=== PATIENT | female | born 1965 | race Caucasian/White ===

== ENCOUNTER 2023-09-28 19:02 | Observation (INO) | payer BC, SELFPAY ==
[2023-09-28 19:36] VITALS: PULSE 87; RESP 18; TEMP 36.9; O2SAT 93; BMI 36.4
[2023-09-28 20:41] LABS: Add Urine Microscopic? YES; Bilirubin Urine Neg (Negative); Blood Urine 2+ (Negative); Glucose Urine UA Norm (Normal); Ketones Urine Negative (Negative); Leukocyte Esterase Urine 2+ (Negative); Nitrate Urine Negative (Negative); Protein Urine Neg (Negative); Urine Appearance SL Hazy (CLEAR); Urine Color Yellow (Yellow); Urobilinogen Urine Norm (Negative); pH Urine 6 (5-7)
[2023-09-28 20:42] LABS: Bacteria Urine TRACE /hpf; Squamous Epithelial Cell Urine 15-25 /hpf (0-5); WBC Urine 15-25 /hpf (0-5)
[2023-09-28 21:09] VITALS: BP 172/59; PULSE 72; O2SAT 94
[2023-09-28 21:12] LABS: Basophils % 0.4 %; Eosinophils # 0.2 10^3/uL (0.0-0.8); Eosinophils % 2.3 %; Hematocrit 46.5 % (36-47); Lymphocytes # 1.6 10^3/uL (0.8-4.8); Lymphocytes % 15.6 %; Mean Corpuscular Hemoglobin 29.3 pg (27-33); Mean Corpuscular Volume 94.5 fl (85-98); Mean Platelet Volume 13.2 fL (7.4-10.4); Monocytes # 0.7 10^3/uL (0.2-0.9); Monocytes % 6.9 %; Neutrophils # 7.42 10^3/uL (1.8-7.7); Neutrophils % 74.5 %; Nucleated Red Blood Cells % 0 %; Platelet Count 195 10^3/cmm (157-399); Red Blood Count 4.92 10^6/uL (3.85-5.65); Red Cell Distribution Width 13.6 % (12.1-15.1); White Blood Count 9.96 10^3/uL (3.29-11.43)
--- NOTE | 2023-09-28 21:13 | CTR_ITS ---
PROCEDURE INFORMATION: Exam: CT Abdomen And Pelvis With Contrast Exam date and time: 09/28/2023 9:36 PM Age: 58 years old Clinical indication: Abdominal pain; Localized; Right upper quadrant (ruq); Patient HX: C/O ruq pain; Additional info: Ruq abd pain TECHNIQUE: Imaging protocol: Computed tomography of the abdomen and pelvis with contrast. Radiation optimization: All CT scans at this facility use at least one of these dose optimization techniques: automated exposure control; mA and/or kV adjustment per patient size (includes targeted exams where dose is matched to clinical indication); or iterative reconstruction. Contrast material: OMNI 350; Contrast volume: 100 ml; Contrast route: INTRAVENOUS (IV); COMPARISON: No relevant prior studies available. RADIATION DOSE METRICS: Total DLP (mGy-cm): 1000.38 FINDINGS: Lungs: Subsegmental bibasilar atelectasis. The visualized lung bases are otherwise grossly clear. Diaphragm: No evidence of diaphragmatic defect. Liver: No focal hepatic lesion. Gallbladder and bile ducts: There is cholelithiasis with minimal pericholecystic haziness. No inflammatory changes to suggest acute cholecystitis. No intrahepatic or extrahepatic biliary dilatation. Pancreas: Unremarkable. Spleen: Unremarkable. Adrenal glands: Unremarkable. Kidneys and ureters: There are simple appearing renal cysts for which dedicated imaging follow-up is not required. Otherwise no evidence of renal parenchymal abnormality. No hydronephrosis or ureteral stone. Stomach and bowel: No evidence of bowel obstruction or perienteric inflammatory changes. 5 cm fat containing periumbilical hernia. Incidental intramural lipoma noted in the duodenal bulb. Appendix: Normal appendix. Intraperitoneal space: No evidence of free air or fluid collection. Vasculature: No aneurysmal dilatation or dissection of the abdominal aorta. The celiac trunk, SMA and LUX are grossly patent. No evidence of IVC thrombus. The portal vein, SMV and splenic veins are grossly patent. Lymph nodes: No adenopathy. Urinary bladder: Grossly unremarkable. Reproductive: Grossly unremarkable. Bones/joints: No evidence of acute fracture or aggressive osseous lesion. Severe osteoarthritis of the left hip. Prominent L1-L2 anterior osteophytosis. Chronic L5 pars defects noted. Soft tissues: No evidence of fluid collection or hematoma in the superficial soft tissues. CT/CT abdomen pelvis w con* [id number] IMPRESSION: 1. No evidence of acute abnormality in the abdomen or pelvis. 2. Cholelithiasis with minimal pericholecystic haziness raising the question of symptomatic cholelithiasis. No inflammatory changes to suggest acute cholecystitis. If there is ongoing clinical concern, consider correlation with biliary labs and right upper quadrant ultrasound.
[2023-09-28 21:32] LABS: Alanine Aminotransferase 22 U/L (0-33); Albumin Level 3.8 g/dL (3.5-5.2); Alkaline Phosphatase 127 U/L (35-105); Anion Gap 10.1 (5-19); Aspartate Amino Transferase 17 U/L (0-32); Blood Urea Nitrogen 17 mg/dL (8-23); Calcium 9.6 mg/dL (8.5-10.5); Carbon Dioxide 31 mmol/L (22-29); Chloride 107 mmol/L (98-107); Globulin 3.4 g/dL (1.3-4.6); Glomerular Filtration Rate 73.2 mL/min (90-130); Glucose 116 mg/dL (65-115); Lipase 26 U/L (13-60); Osmolality Calculated 301 mOsm/kg (285-295); Potassium 4.1 mmol/L (3.5-5.1); Sodium 144 mmol/L (136-145); Total Bilirubin 0.2 mg/dL (0.15-1.2); Total Protein 7.2 g/dL (6.6-8.7)
[2023-09-28] MEDS: iohexol 350 mg/mL 500 mL Btl (per mL) IV (21:38)
--- NOTE | 2023-09-28 21:41 | W.ED.ABDPA2 ---
HPI - Abdominal Pain General: Chief Complaint: Abdominal Pain Stated Complaint: left side and back pain Time Seen by Provider: 09/28/23 21:12 History of Present Illness: 58-year-old female presents to the emergency department with complaints of right upper quadrant abdominal pain after eating this evening. She states she has had similar pain intermittently since September 27, 2023. She states that now the pain is a 7 out of 10 worse on inspiration and worse if she touches her right upper quadrant. She states the pain is worse if she bends over. She has had associated nausea without vomiting. She denies hematic emesis or hematochezia. She denies fevers chills or night sweats. Associated Symptoms: Reports nausea Review of Systems General: Reports: 10 or more systems reviewed and unremarkable except in HPI and below GI: Reports: abdominal pain and nausea Physical Exam Narrative: EXAM NARRATIVE: Constitutional: the patient appears well nourished and of normal development. Vital signs as documented. No acute distress at present. Alert and oriented-to person, place, time and situation. Head, eyes, ears, nose, mouth, throat: Normocephalic, atraumatic. Pupils-equal, round, reactive to light. No scleral icterus. Normal-appearing external ears. Normal appearing nasal turbinates, no drainage. No obvious oral lesions, posterior oropharynx without erythema or exudates. Neck: Supple, trachea is midline, no lymphadenopathy, no jugular venous distension, thyromegaly, or carotid bruits. Carotid upstrokes are brisk bilaterally. Lungs: clear to auscultation to all lung [place]. Symmetrical rise and fall of chest, no obvious signs of increased work of breathing at present. Cardiac: Regular rate and rhythm, positive S1, S2. No murmurs, rubs or gallops that I can appreciate Abdomen: Soft, right upper quadrant tender to palpation, positive Donohue sign, normal active bowel sounds to all quadrants. No palpable masses, no organomegaly and abdominal bruits. Extremities: 2+ pulses in the upper extremities that are equal bilaterally, 2+ pulses in the lower extremities that are equal bilaterally. Non-edematous. Moves all extremities well, sensation to all extremities are noted. Skin: Warm, dry, intact. Course Vital Signs: Vital signs: Vital Signs Temperature 98.4 F 09/28/23 19:36 Pulse Rate 72 09/28/23 21:09 Respiratory Rate 18 02/02/24 19:36 Blood Pressure 172/59 09/28/23 21:09 Pulse Oximetry 94 09/28/23 21:09 Oxygen Delivery Me thod Room Air 09/28/23 21:09 MDM - Abdominal Pain Medical Decision Making Physical exam completed and documented, I will obtain laboratory evaluation to include a CBC, CMP, lipase, urinalysis, and a CT scan of the patient's abdomen pelvis to evaluate for possible differential diagnosis of bowel obstruction, incarcerated hernia, abdominal wall strain, abdominal wall hematoma, constipation. I will provide the patient IV access and IV fluid as well as an ultrasound of the right upper quadrant given her positive physical exam findings and to rule out cholelithiasis, cholecystitis. I will provide nausea and pain medication. Medical Records I reviewed the patient's medical records. Lab Data I reviewed the patient's lab results. 09/28/23 20:45 09/28/23 20:45 Labs/Radiology: Radiology Impressions Abdomen/Pelvis CT 09/28/23 21:13 IMPRESSION: 1. No evidence of acute abnormality in the abdomen or pelvis. 2. Cholelithiasis with minimal pericholecystic haziness raising the question of symptomatic cholelithiasis. No inflammatory changes to suggest acute cholecystitis. If there is ongoing clinical concern, consider correlation with biliary labs and right upper quadrant ultrasound. Gallbladder Ultrasound 09/28/23 21:58 IMPRESSION: 1. Cholelithiasis with mild gallbladder wall thickening compatible with symptomatic cholelithiasis versus early acute cholecystitis in the proper clinical setting. Laboratory Results WBC 9.96 10^3/uL (3.29-11.43) 09/28/23 20:45 RBC 4.92 10^6/uL (3.85-5.65) 09/28/23 20:45 Hgb 14.40 g/dL (11.27-16.99) 09/28/23 20:45 Hct 46.5 % (36-47) 09/28/23 20:45 MCV 94.5 fl (85-98) 09/28/23 20:45 MCH 29.3 pg (27-33) 09/28/23 20:45 MCHC 31.0 g/dL (30-55) 09/28/23 20:45 RDW 13.6 % (12.1-15.1) 09/28/23 20:45 Plt Count 195 10^3/cmm (157-399) 09/28/23 20:45 MPV 13.2 fL (7.4-10.4) H 09/28/23 20:45 Neut % (Auto) 74.5 % 09/28/23 20:45 Lymph % (Auto) 15.6 % 09/28/23 20:45 [place] % (Auto) 6.9 % 09/28/23 20:45 Eos % (Auto) 2.3 % 09/28/23 20:45 Baso % (Auto) 0.4 % 09/28/23 20:45 Neut # (Auto) 7.42 10^3/uL (1.8-7.7) 09/28/23 20:45 Lymph # (Auto) 1.6 10^3/uL (0.8-4.8) 09/28/23 20:45 [place] # (Auto) 0.7 10^3/uL (0.2-0.9) 09/28/23 20:45 Eos # (Auto) 0.2 10^3/uL (0.0-0.8) 09/28/23 20:45 Baso # (Auto) 0.0 10^3/uL (0.0-0.1) 09/28/23 20:45 Nucleated RBC % (auto) 0 % 09/28/23 20:45 Nucleated RBCs # 0.0 /100WBC 09/28/23 20:45 Sodium 144 mmol/L (136-145) 09/28/23 20:45 Potassium 4.1 mmol/L (3.5-5.1) 09/28/23 20:45 Chloride 107 mmol/L (98-107) 09/28/23 20:45 Carbon Dioxide 31 mmol/L (22-29) H 09/28/23 20:45 Anion Gap 10.1 (5-19) 09/28/23 20:45 BUN 17 mg/dL (8-23) 09/28/23 20:45 Creatinine 0.8 mg/dL (0.5-0.9) 09/28/23 20:45 GFR Calculation 73.2 mL/min (90-130) L 09/28/23 20:45 Glucose 116 mg/dL (65-115) H 09/28/23 20:45 Calculated Osmolality 301 mOsm/kg (285-295) H 09/28/23 20:45 Calcium 9.6 mg/dL (8.5-10.5) 09/28/23 20:45 Total Bilirubin 0.2 mg/dL (0.15-1.2) 09/28/23 20:45 AST 17 U/L (0-32) 09/28/23 20:45 ALT 22 U/L (0-33) 09/28/23 20:45 Alkaline Phosphatase 127 U/L (35-105) H 09/28/23 20:45 Total Protein 7.2 g/dL (6.6-8.7) 09/28/23 20:45 Albumin 3.8 g/dL (3.5-5.2) 09/28/23 20:45 Globulin 3.4 g/dL (1.3-4.6) 09/28/23 20:45 Lipase 26 U/L (13-60) 09/28/23 20:45 Urine Color Yellow (Yellow) 09/28/23 19:45 Urine Appearance Sl hazy (CLEAR) A 09/28/23 19:45 Urine pH 6 (5-7) 09/28/23 19:45 Ur Specific [place] 1.020 (1.005-1.030) 09/28/23 19:45 Urine Protein Neg (Negative) 09/28/23 19:45 Urine Glucose (UA) Norm (Normal) 09/28/23 19:45 Urine Ketones Negative (Negative) 09/28/23 19:45 Urine Blood 2+ (Negative) H 09/28/23 19:45 Urine Nitrate Negative (Negative) 09/28/23 19:45 Urine Bilirubin Neg (Negative) 09/28/23 19:45 Urine Urobilinogen Norm mg/dL (Negative) 09/28/23 19:45 Ur Leukocyte Esterase 2+ (Negative) H 09/28/23 19:45 Urine RBC 5-10 /hpf (0-2) H 09/28/23 19:45 Urine WBC 15-25 /hpf (0-5) H 09/28/23 19:45 Ur Squamous Epith Cells 15-25 /hpf (0-5) H 09/28/23 19:45 Amorphous Sediment Not Reportable 09/28/23 19:45 Urine Bacteria Trace /hpf (NONE) 09/28/23 19:45 All radiology interpretation(s) finalized by discharge Discharge Plan Discharge Patient Disposition: Admitted As Inpatient Clinical Impression: Cholecystitis with cholelithiasis Condition: Stable Coding Level of Care Code ED Computer Systems Information Director for Shira Carrasquillo
--- NOTE | 2023-09-28 21:58 | USR_ITS ---
PROCEDURE INFORMATION: Exam: US Abdomen, Limited; Right Upper Quadrant Exam date and time: 09/28/2023 10:42 PM Age: 58 years old Clinical indication: Abdominal pain; Acute; Additional info: Ruq abd pain TECHNIQUE: Imaging protocol: Real time ultrasound of the abdomen with image documentation. Limited exam focused on the right upper quadrant. COMPARISON: CT abdomen pelvis w con* [id number] 09/28/2023 9:36 PM FINDINGS: Liver: Visualized hepatic parenchyma is echogenic. The liver contour is grossly smooth. Gallbladder: There is cholelithiasis. Mild gallbladder wall thickening to 4-5 mm. Biliary ducts: The CBD is nondilated, measuring 6 mm. No sonographic evidence of intraductal stone. Pancreas: The pancreas is mostly obscured bowel gas. Visualized portions are grossly unremarkable. Right kidney: The right kidney is normal in echotexture and measures 12.2 cm in length. No evidence of hydronephrosis. US/US gall bladder [id number] IMPRESSION: 1. Cholelithiasis with mild gallbladder wall thickening compatible with symptomatic cholelithiasis versus early acute cholecystitis in the proper clinical setting.
[2023-09-28] MEDS: ondansetron 2 mg/ML SDV 2 mL 4 MG IVP (22:20)
[2023-09-28] MEDS: ketorolac 30 mg/mL INJ IVP (22:20)
[2023-09-28 23:45] VITALS: PULSE 74; O2SAT 90
[2023-09-28] MEDS: piperacillin-tazobactam 3.375 GM in sodium chloride 0.9% (plus) 50 ML IV (23:59)
[2023-09-29] MEDS: lactated ringers 1,000 ML 100 ML IV ×2 (00:41→08:14)
--- NOTE | 2023-09-29 00:45 | PC.NURSE ---
Morphine returned to Pyxis, as patient stated that her pain was a 0/10 and she did not want it. Return witnessed by DELIA Leslie at this time.
[2023-09-29 02:17] VITALS: BP 152/81; PULSE 71; RESP 16; O2SAT 92
--- NOTE | 2023-09-29 02:20 | PC.NURSE ---
Report called to DELIA Leon on MS. All questions and concerns addressed at time of report.
[2023-09-29 02:45] VITALS: BP 150/83; PULSE 79; RESP 18; TEMP 36.4; O2SAT 90
[2023-09-29 03:09] VITALS: BMI 40.4
[2023-09-29] MEDS: ketorolac 30 mg/mL INJ 15 MG IVP ×2 (03:20→10:16)
[2023-09-29 04:00] VITALS: BP 126/70; PULSE 64; RESP 17; TEMP 36.6; O2SAT 92
[2023-09-29 05:52] LABS: Basophils % 0.4 %; Eosinophils # 0.2 10^3/uL (0.0-0.8); Eosinophils % 2.4 %; Hematocrit 45.7 % (36-47); Lymphocytes # 1.6 10^3/uL (0.8-4.8); Lymphocytes % 19.1 %; Mean Corpuscular HGB Conc 30.6 g/dL (30-55); Mean Corpuscular Hemoglobin 29.4 pg (27-33); Mean Platelet Volume 13.6 fL (7.4-10.4); Monocytes # 0.6 10^3/uL (0.2-0.9); Monocytes % 7.7 %; Neutrophils # 5.75 10^3/uL (1.8-7.7); Nucleated Red Blood Cells % 0 %; Platelet Count 180 10^3/cmm (157-399); Red Blood Count 4.76 10^6/uL (3.85-5.65); Red Cell Distribution Width 13.8 % (12.1-15.1); White Blood Count 8.21 10^3/uL (3.29-11.43)
[2023-09-29 06:04] LABS: Partial Thromboplastin Time 26.3 SECONDS (23.9-36.7)
[2023-09-29 06:11] LABS: Alanine Aminotransferase 39 U/L (0-33); Albumin Level 3.4 g/dL (3.5-5.2); Alkaline Phosphatase 123 U/L (35-105); Anion Gap 9.3 (5-19); Aspartate Amino Transferase 34 U/L (0-32); Blood Urea Nitrogen 20 mg/dL (8-23); Calcium 8.9 mg/dL (8.5-10.5); Carbon Dioxide 30 mmol/L (22-29); Chloride 109 mmol/L (98-107); Globulin 3.4 g/dL (1.3-4.6); Glomerular Filtration Rate 85.4 mL/min (90-130); Glucose 105 mg/dL (65-115); Osmolality Calculated 301 mOsm/kg (285-295); Potassium 4.3 mmol/L (3.5-5.1); Sodium 144 mmol/L (136-145); Total Bilirubin 0.2 mg/dL (0.15-1.2); Total Protein 6.8 g/dL (6.6-8.7)
[2023-09-29] MEDS: piperacillin-tazobactam 3.375 GM in sodium chloride 0.9% (plus) 50 ML IV (08:08)
[2023-09-29 08:12] VITALS: BP 145/81; PULSE 64; RESP 16; TEMP 36.6; O2SAT 93
--- NOTE | 2023-09-29 08:49 | P.DS_ITS ---
Discharge Providers Date of Admission: 09/29/23 00:00 Date of Discharge: September 29, 2023 Attending Provider at Admission: Avery Peterson MD Attending Provider at Discharge: Avery Peterson MD Reason for Visit Reason for Visit: left side and back pain Hospital Course Hospital Course This is a 58-year-old female who presented yesterday to the emergency department complaining of right upper quadrant pain. Laboratory workup was normal CT scan of the abdomen and ultrasound of the bladder were done which show evidence of minimal amount of gallbladder wall thickening and pericholecystic fluid that was suspicious for possible symptomatic cholelithiasis versus acute cholecystitis. We decided to admit the patient for observation overnight and to determine if laparoscopic ostectomy was acutely indicated. On evaluation this morning patient explains that the pain has resolved completely. Patient states that she has not had this pain in the past and it came yesterday after she ate prime rib. She denies any abdominal pain at the moment, no fever no chills, no nausea or vomiting. On examination there is no tenderness to the abdomen or the right upper quadrant. I have discussed with the patient I have explained that after further review of imaging laboratory workup and clinical presentation I think probably she had an episode of biliary colic rather than acute cholecystitis. I have informed the patient that I will still like to proceed with a laparoscopic cholecystectomy but this can be done in an elective setting as there is no acute indication. I have explained to the patient that in the meantime until she gets her surgery I would like her to stay in very lean low-fat diet to prevent further episodes of biliary colic and I will also like her to attend on some weight loss to improve her outcomes. I have given the patient warning signs and in case of recurrent pain or worsening symptomatology I have explained that we will have to proceed with a laparoscopic cholecystectomy in the acute setting. Patient shows understanding, is agreeable with the plan and will follow-up with me in 1 week to plan for surgery. Physical Exam Narrative: General : Patient is well developed , no acute distress, oriented x3 Head : Normal cephalic, a-traumatic. Nose : Mucous membranes are without erythema. Lungs : Equal chest rise bilaterally, no use of accessory muscles, trachea is midline. CV : Rate and rhythm are normal. Abdomen : Soft, ND, NT, no g/r/m, no Donohue sign or right upper quadrant tenderness to palpation, there is an umbilical hernia. Extremities : No edema. Upper extremities are normal bilaterally. Back : non-tender to palpation, no CVA tenderness. Discharge Data Studies Completed and Pending Completed Studies During Hospitalization Category Date Time Status CT abdomen pelvis w con* [id number] Stat Cat Scan 09/28/23 21:13 Completed US gall bladder [id number] Stat Ultrasound 09/28/23 21:58 Completed Radiology Impressions Abdomen/Pelvis CT 09/28/23 21:13 IMPRESSION: 1. No evidence of acute abnormality in the abdomen or pelvis. 2. Cholelithiasis with minimal pericholecystic haziness raising the question of symptomatic cholelithiasis. No inflammatory changes to suggest acute cholecystitis. If there is ongoing clinical concern, consider correlation with biliary labs and right upper quadrant ultrasound. Gallbladder Ultrasound 09/28/23 21:58 IMPRESSION: 1. Cholelithiasis with mild gallbladder wall thickening compatible with symptomatic cholelithiasis versus early acute cholecystitis in the proper clinical setting. Laboratory Results WBC 8.21 10^3/uL (3.29-11.43) 09/29/23 04:57 RBC 4.76 10^6/uL (3.85-5.65) 09/29/23 04:57 Hgb 14.00 g/dL (11.27-16.99) 09/29/23 04:57 Hct 45.7 % (36-47) 09/29/23 04:57 MCV 96.0 fl (85-98) 09/29/23 04:57 MCH 29.4 pg (27-33) 09/29/23 04:57 MCHC 30.6 g/dL (30-55) 09/29/23 04:57 RDW 13.8 % (12.1-15.1) 09/29/23 04:57 Plt Count 180 10^3/cmm (157-399) 09/29/23 04:57 MPV 13.6 fL (7.4-10.4) H 09/29/23 04:57 Neut % (Auto) 70.0 % 09/29/23 04:57 Lymph % (Auto) 19.1 % 09/29/23 04:57 [place] % (Auto) 7.7 % 09/29/23 04:57 Eos % (Auto) 2.4 % 09/29/23 04:57 Baso % (Auto) 0.4 % 09/29/23 04:57 Neut # (Auto) 5.75 10^3/uL (1.8-7.7) 09/29/23 04:57 Lymph # (Auto) 1.6 10^3/uL (0.8-4.8) 09/29/23 04:57 [place] # (Auto) 0.6 10^3/uL (0.2-0.9) 09/29/23 04:57 Eos # (Auto) 0.2 10^3/uL (0.0-0.8) 09/29/23 04:57 Baso # (Auto) 0.0 10^3/uL (0.0-0.1) 09/29/23 04:57 Nucleated RBC % (auto) 0 % 09/29/23 04:57 Nucleated RBCs # 0.0 /100WBC 09/29/23 04:57 APTT 26.3 SECONDS (23.9-36.7) 09/29/23 04:57 Sodium 144 mmol/L (136-145) 09/29/23 04:57 Potassium 4.3 mmol/L (3.5-5.1) 09/29/23 04:57 Chloride 109 mmol/L (98-107) H 09/29/23 04:57 Carbon Dioxide 30 mmol/L (22-29) H 09/29/23 04:57 Anion Gap 9.3 (5-19) 09/29/23 04:57 BUN 20 mg/dL (8-23) 09/29/23 04:57 Creatinine 0.7 mg/dL (0.5-0.9) 09/29/23 04:57 GFR Calculation 85.4 mL/min (90-130) L 09/29/23 04:57 Glucose 105 mg/dL (65-115) 09/29/23 04:57 Calculated Osmolality 301 mOsm/kg (285-295) H 09/29/23 04:57 Calcium 8.9 mg/dL (8.5-10.5) 09/29/23 04:57 Total Bilirubin 0.2 mg/dL (0.15-1.2) 09/29/23 04:57 AST 34 U/L (0-32) H 09/29/23 04:57 ALT 39 U/L (0-33) H 09/29/23 04:57 Alkaline Phosphatase 123 U/L (35-105) H 09/29/23 04:57 Total Protein 6.8 g/dL (6.6-8.7) 09/29/23 04:57 Albumin 3.4 g/dL (3.5-5.2) L 09/29/23 04:57 Globulin 3.4 g/dL (1.3-4.6) 09/29/23 04:57 Lipase 26 U/L (13-60) 09/28/23 20:45 Urine Color Yellow (Yellow) 09/28/23 19:45 Urine Appearance Sl hazy (CLEAR) A 09/28/23 19:45 Urine pH 6 (5-7) 09/28/23 19:45 Ur Specific [place] 1.020 (1.005-1.030) 09/28/23 19:45 Urine Protein Neg (Negative) 09/28/23 19:45 Urine Glucose (UA) Norm (Normal) 09/28/23 19:45 Urine Ketones Negative (Negative) 09/28/23 19:45 Urine Blood 2+ (Negative) H 09/28/23 19:45 Urine Nitrate Negative (Negative) 09/28/23 19:45 Urine Bilirubin Neg (Negative) 09/28/23 19:45 Urine Urobilinogen Norm mg/dL (Negative) 09/28/23 19:45 Ur Leukocyte Esterase 2+ (Negative) H 09/28/23 19:45 Urine RBC 5-10 /hpf (0-2) H 09/28/23 19:45 Urine WBC 15-25 /hpf (0-5) H 09/28/23 19:45 Ur Squamous Epith Cells 15-25 /hpf (0-5) H 09/28/23 19:45 Amorphous Sediment Not Reportable 09/28/23 19:45 Urine Bacteria Trace /hpf (NONE) 09/28/23 19:45 Vitals Last Vital Signs Temp 97.9 F 09/29/23 08:12 Pulse 64 09/29/23 08:12 Resp 16 09/29/23 08:12 BP 145/81 09/29/23 08:12 Pulse Ox 93 09/29/23 08:12 O2 Del Method Room Air 09/29/23 08:12 Discharge Plan Discharge Patient Disposition: Home Condition: Stable Prescriptions: New amoxicillin-pot clavulanate 875-125 mg tablet 1 tab PO BID Qty: 14 0RF Rx Instructions: to start on 09/29/2023 evening dose meloxicam 15 mg tablet 15 mg PO DAILY Qty: 7 0RF Rx Instructions: Daily with Breakfast Discharge Orders: Discharge Order (Routine); Ordered 09/29/23 Ordered By: Avery Peterson Referrals: Avery Peterson MD [Physician] - (1 week ) Discharge Diet: Advance as tolerated and Low Fat Discharge Activity: Resume usual activity Patient Instructions: Opioid Safety Activity Restrictions/Additional Instructions: Please remain in a very low-fat diet, please avoid all processed food and practice portion control. This will allow you to remain pain-free and will also reduce the size of your liver making surgery safer. Please walk as much as possible to improve your wellbeing and health status. Please return to the hospital if you develop fever chills severe abdominal pain that becomes constant or severe nausea and vomit. Discharge Attestations Time Spent in Discharge Care*: less than 30 min Quality Metrics Clinical Quality Measures [ No reported AMI, CVA or VTE this stay] Coding Level of Care Code Acute Code for Chg Foreign
[2023-09-29] MEDS: pneumococcal (23 valent) SDV 0.5 mL IM (11:33)
[2023-09-29] MEDS: flu vacc pf 2023-24 (6 mos+) 60 MCG IM (11:36)
[2023-09-29 12:47] VITALS: BP 145/81; PULSE 64; RESP 16; TEMP 36.6; O2SAT 93
== END 2023-09-29 12:49 | disposition home or self-care (01) ==
LOC: ER 23:31 → MEDSURG 09-29 08:53
PROVIDERS: Emergency Medicine; Admitting Provider Surgery; Emergency Provider Internal Medicine; Visit Provider Surgery
DX: K80.20 Calculus of gallbladder without cholecystitis without obstruction (principal); Z23 Encounter for immunization
CPT/HCPCS: 36415; 74177; 76705; 80053; 81001; 83690; 85025; 85730; 90471; 90686; 90732; 96365; 96375; 96376; 99285; G0378; J1885; J2405; J2543; J7120; Q9967

== ENCOUNTER 2023-11-05 15:34 | Observation (INO) | payer BC, SELFPAY ==
[2023-11-05] VITALS (16 sets, daily range): BP systolic 141–209; BP diastolic 56–101; PULSE 56–77; RESP 15–19; TEMP 36.4–36.6; O2SAT 90–97; BMI 38.9
--- NOTE | 2023-11-05 08:24 | W.PM.OPSUD ---
Surgery/Procedure H&P Update DATE OF PROCEDURE: November 05, 2023 DATE H&P PERFORMED: 10/16/23 H&P UPDATE INFORMATION: I have reviewed H&P completed within last 30 days, I have examined patient prior to procedure, No changes to prior documentation and H&P is in [facility] [place] on date indicated PLANNED PROCEDURE: Operation Date: 11/05/23 10:10 Proposed Procedures p 36364 lap maximus K80.50(Not Applicable) - Avery Peterson MD
[2023-11-05] MEDS: sodium chloride 0.9% 1,000 ML 30 ML IV (09:01)
--- NOTE | 2023-11-05 10:45 | ANES.PREANE2 ---
Pre-Anesthetic Assessment Height/Weight: Height 1.63 m Weight 102.965 kg Temp Pulse Resp BP Pulse Ox O2 Del Method 97.6 F 56 L 16 192/98 94 Room Air 11/05/23 08:46 11/05/23 08:46 11/05/23 08:46 11/05/23 08:53 11/05/23 08:46 11/05/23 08:46 Operation Date: 11/05/23 10:10 Proposed Procedures p 98978 lap maximus K80.50(Not Applicable) - Avery Peterson MD Familial anesthetic complications: None Was Beta Janis taken within 24 hours: N/A Was Clonidine taken within 24 hours: N/A Last intake: Intake Last Liquid Date 11/04/23 Last Liquid Time 20:00 Last Solid Date 11/04/23 Last Solid Time 17:00 Social No alcohol and No tobacco Exam alert, oriented x 3, clear to auscultation bilaterally and regular rate & rhythm Airway Mallampati: Class III Dentition: full Pulmonary Asthma (rare inhaler use) Anesthetic Plan ASA status: 2 Anesthesia: General Risk of > 500 ml blood loss (7ml/kg in children): No Medications/Allergies Home Medications Medication Instructions Recorded Confirmed Last Taken Type Lactobacillus acidophilus 10 10,000 mmu cells PO DAILY 09/29/23 11/05/23 11/04/23 History billion cell capsule (Probiotic) albuterol sulfate 2.5 mg/3 mL 2.5 mg inhalation QID PRN 09/29/23 11/02/23 Unknown History (0.083 %) solution for nebulization Shortness Of Breath Or Wheezing albuterol sulfate 90 mcg/actuation 2 puff inhalation QID PRN 09/29/23 11/05/23 11/05/23 History aerosol inhaler Shortness Of Breath Or Wheezing montelukast 10 mg tablet 10 mg PO DAILY 09/29/23 11/05/23 11/05/23 History triamterene 37.5 1 tab PO DAILY PRN Edema 09/29/23 11/02/23 Unknown History mg-hydrochlorothiazide 25 mg tablet (Maxzide-25mg) Allergies Allergy/AdvReac Type Severity Reaction Status Date / Time No Known Allergies Allergy Verified 11/05/23 08:43 Current Medications Generic Name Dose Route Start Last Admin Trade Name Freq PRN Reason Stop Dose Admin Sodium Chloride 1,000 mls @ 30 mls/hr 11/05/23 08:45 11/05/23 09:01 Sodium Chloride 0.9% IV 11/06/23 08:44 30 mls/hr .Q24H PARAMJIT Administration PFSH Anesthesia Family History (Updated 10/16/23 @ 09:[address]) Denies family history of Anesthesia complication Social History (Updated 10/16/23 @ 09:[address]) Smoking and tobacco/nicotine status: former use of tobacco/nicotine Alcohol intake: never Data Anesthesia Cardiac Studies: No Data to Display
[2023-11-05] MEDS: ceFAZolin 2,000 MG in sodium chloride 0.9% (plus) 50 ML 100 MG IV (10:59)
[2023-11-05] MEDS: lidocaine-epi 1% PF 1:200,000 30 mL SDV INJECTION (11:21)
[2023-11-05] MEDS: BUPivacaine 0.25% INJ 10 mL INJECTION (11:21)
--- NOTE | 2023-11-05 14:06 | PM.OP ---
Operative Report Date of procedure: November 05, 2023 Pre-op diagnosis: Symptomatic cholelithiasis Post-op diagnosis: Chronic cholecystitis, cholelithiasis, umbilical hernia Post-op findings: There was a large stone inside of the gallbladder, measuring 7 x 4 x 4 cm, there was moderate amount of inflammation of the hepatocystic triangle. Umbilical hernia was noted to contain omentum, no intervention done for the hernia at this time. Procedure done: Laparoscopic cholecystectomy Specimens removed/disposition: Gallbladder and contents Surgeon: Avery Peterson MD Wire Fence Erector: DEENA OR Staff Estimated blood loss: 25 Complications: None apparent Brief History: 58-year-old female who was admitted with biliary colic about a month ago, she presented for laparoscopic cholecystectomy for symptomatic cholelithiasis. After discussion of all risk and benefits as documented in my preop note we decided to proceed. Procedure: Patient was brought into the OR, she was placed in a supine position, general esthesia was given. The abdomen was prepped and draped in the usual sterile fashion. Timeout was conducted. The abdomen was accessed at [place] using Optiview 5 mm trocar under direct visualization. Pneumoperitoneum was achieved and initial laparoscopy showed no evidence of visceral injury. Umbilical hernia containing omentum was noted. Under rib visualization a 12 mm trocar was placed in the supraumbilical position about 1.5 cm away from the hernia. Additional 5 mm trocars under direct visualization were placed in the epigastrium right upper quadrant right flank position. The gallbladder was grasped at the fundus and retracted cephalad, grasped and the gallbladder was very challenging due to contents. The gallbladder wall appeared to be taken. The infundibulum was retracted in the inferolateral direction exposing the hepatocystic triangle. The fat anterior to hepatocystic triangle was opened with electrocautery. The opening was covering the medial and lateral direction to the edges of the liver and then on the sides of the gallbladder to allow for better exposure. There was moderate amount of inflammation in the hepatocystic triangle, with careful blunt dissection electrocautery I was able to encircle the cystic duct and artery and elevate the lower third of the gallbladder towards obtaining critical view of safety. The cystic duct and artery were then double clipped proximally and single clipped distally and transected. The gallbladder was excised from the liver bed with electrocautery. During excision a small hole was made in the gallbladder, very thick bile was noted to be coming from these: The gallbladder was aspirated with the suction cannula. Before removing the gallbladder I evaluated the liver bed and noted to be hemostatic, no evidence of bile leak was noted, the clips were noted in good position. The gallbladder was then placed in Endo Catch bag and I attempted to retrieve it through the supraumbilical trocar site. The gallbladder was extremely large likely due to a large stone inside, I had to increase the size of the surgical incision to about 4 cm and in addition to that I had to dilate the fascia with a clamp. During retrieval of the gallbladder the bag broke and the gallbladder broke, a very large 4 x 4 x 7 cm stone was then noted to be in the gallbladder and fell into the abdomen. I remove the gallbladder and after this I replaced the trocar and retrieved the large stone in an additional Endo Catch bag via the umbilical trocar site. Due to initial breakage of the back there was contamination of the wound with bile. I then proceeded to evaluate the whole abdomen and irrigated the abdomen with profuse amount of saline to ensure no remaining stones were left inside as well as no bile was left inside. I proceeded to close the supraumbilical trocar site with several [id number] 0 Vicryl sutures, this was done under direct visualization using a Luis-Louise suture passer. I then deflated the abdomen to tie the sutures and once the sutures were tied I reinflated the abdomen to verify adequate closure of the fascia. The closure was done taking careful consideration of not including the contents of the hernia into the closure. Additional irrigation of the abdomen was then completed and all the water use or rotation was suction before removing the trocars I reviewed the gallbladder fossa noted to be hemostatic with clips still in place. I then remove the left upper quadrant, epigastric and right upper quadrant trocars under direct visualization and I used the right flank trocar to evacuate the pneumoperitoneum and subsequently I removed it. All wounds were irrigated with profuse amount of saline, sonya were used to close the skin. Due to contamination with bile I decided to pack the umbilical wound to prevent surgical site infection this was done with helping to iodoform packing. A sterile dressing was applied. The patient tolerated the procedure well, was extubated and was transferred to the PACU in stable condition. Due to significant intraoperative findings and large abdominal incision needed to extract the stone the patient will be staying overnight for observation and IV antibiotics.
--- NOTE | 2023-11-05 14:31 | PM.HP ---
Providers/Chief Complaint Admitting Physician: Avery Peterson MD Primary Care Provider: Leslye Estrada APN Chief Complaint: K80.50 History of Present Illness Ruth Ann Figueroa is a 58 year old female who presented to the hospital to undergo laparoscopic cholecystectomy due to symptomatic cholelithiasis. Procedure was complex due to a very large 7 x 4 x 4 cm stone noted in the gallbladder and inflammation hepatocystic triangle. Patient will require stay 24 hours for observation for pain control and 24 hours of IV antibiotics before being discharged home. Currently stable after surgery Review of Systems General: Reports: 10 or more systems reviewed and unremarkable except in HPI and below Medications/Allergies Home Medications Medication Instructions Recorded Confirmed Last Taken Type Lactobacillus acidophilus 10 10,000 mmu cells PO DAILY 09/29/23 11/05/23 11/04/23 History billion cell capsule (Probiotic) albuterol sulfate 2.5 mg/3 mL 2.5 mg inhalation QID PRN 09/29/23 11/02/23 Unknown History (0.083 %) solution for nebulization Shortness Of Breath Or Wheezing albuterol sulfate 90 mcg/actuation 2 puff inhalation QID PRN 09/29/23 11/05/23 11/05/23 History aerosol inhaler Shortness Of Breath Or Wheezing montelukast 10 mg tablet 10 mg PO DAILY 09/29/23 11/05/23 11/05/23 History triamterene 37.5 1 tab PO DAILY PRN Edema 09/29/23 11/02/23 Unknown History mg-hydrochlorothiazide 25 mg tablet (Maxzide-25mg) Allergies Allergy/AdvReac Type Severity Reaction Status Date / Time No Known Allergies Allergy Verified 11/05/23 08:43 PFSH Acute PFSH: Family History (Updated 10/16/23 @ 09:04 by RIGOBERTO Vale) Denies family history of Anesthesia complication Social History (Updated 10/16/23 @ 09:04 by RIGOBERTO Vale) Smoking and tobacco/nicotine status: former use of tobacco/nicotine Alcohol intake: never Vitals/I&O/Wt Last Vital Signs Temp 97.6 F 11/05/23 08:46 Pulse 56 L 11/05/23 08:46 Resp 16 11/05/23 08:46 BP 192/98 11/05/23 08:53 Pulse Ox 94 11/05/23 08:46 O2 Del Method Room Air 11/05/23 08:46 O2 Flow Rate 6 11/05/23 14:13 11/04/23 11/05/23 11/05/23 22:59 06:59 14:59 Intake Total 50 / 50 Output Total 25 / 25 Balance 25 / 25 Weight last 48 hrs Weight 227 lb Physical Exam Narrative: Alert and oriented, minimal pain. GI: OTHER: Abdomen is soft, appropriately tender to palpation, surgical incisions are covered with dressing. A&P Assessment and plan (1) Chronic cholecystitis: Plan 58-year-old female who is status post laparoscopic cholecystectomy for chronic cholecystitis and cholelithiasis. Procedure was complex in nature, large abdominal incision was need to be made in order to retrieve the gallbladder stone measuring about 7 x 4 x 4 cm. In addition there were some bile contamination of the wound, therefore I Decided that the best approach is to keep the patient overnight for observation and IV antibiotics. If patient is stable by tomorrow she will be discharged home. ? Full liquid diet ? Zosyn every 8h ? Oxycodone and as needed Dilaudid for pain control ? Will hold DVT prophylaxis and Toradol prevent bleeding ? Daily wound care ? Incentive spirometer ? Ambulate as tolerated. Attestations Medical Necessity Statement*: Anticipated length of stay is 1 midnight. Coding Level of Care Code Acute Code for g Fw Diagnoses Chronic cholecystitis K81.1
[2023-11-05] MEDS: piperacillin-tazobactam 3.375 GM in sodium chloride 0.9% (plus) 50 ML IV ×2 (14:32→22:16)
[2023-11-05] MEDS: morphine 4 mg/mL SDV 1 mL IVP (14:57)
[2023-11-05] MEDS: acetaminophen 325 mg Tablet 650 MG PO ×2 (17:10→22:15)
[2023-11-05] MEDS: oxyCODONE 5 mg IR Tab/Cap PO ×2 (17:10→22:15)
--- NOTE | 2023-11-05 20:00 | ANE.PACU2 ---
Inpatient post-anesthesia follow up: Airway intact: Yes Vital signs: Temperature 97.9 F Pulse Rate 69 Respiratory Rate 18 Blood Pressure 119/72 Pulse Oximetry 94 Oxygen Delivery Me thod Nasal Cannula Oxygen Flow Rate 2 Fraction of Inspir ed Oxygen Hydration adequate: Yes Nausea and vomiting: No Pain level: 1 Mental status: Baseline
[2023-11-06 00:10] VITALS: BP 129/76; PULSE 72; RESP 18; TEMP 36.6; O2SAT 93
[2023-11-06] MEDS: acetaminophen 325 mg Tablet 650 MG PO (03:32)
[2023-11-06] MEDS: oxyCODONE 5 mg IR Tab/Cap PO (03:32)
[2023-11-06 04:01] VITALS: BP 119/72; PULSE 69; RESP 18; TEMP 36.6; O2SAT 94
[2023-11-06 05:18] LABS: Basophils % 0.2 %; Hematocrit 44.6 % (36-47); Lymphocytes # 1.5 10^3/uL (0.8-4.8); Lymphocytes % 12.1 %; Mean Corpuscular HGB Conc 31.2 g/dL (30-55); Mean Corpuscular Hemoglobin 29.6 pg (27-33); Mean Corpuscular Volume 94.9 fl (85-98); Mean Platelet Volume 12.5 fL (7.4-10.4); Monocytes # 0.8 10^3/uL (0.2-0.9); Monocytes % 6.1 %; Neutrophils # 9.99 10^3/uL (1.8-7.7); Neutrophils % 81.4 %; Nucleated Red Blood Cells % 0 %; Platelet Count 226 10^3/cmm (157-399); Red Cell Distribution Width 13.3 % (12.1-15.1); White Blood Count 12.27 10^3/uL (3.29-11.43)
[2023-11-06] MEDS: piperacillin-tazobactam 3.375 GM in sodium chloride 0.9% (plus) 50 ML IV (05:24)
[2023-11-06 05:54] LABS: Alanine Aminotransferase 63 U/L (0-33); Albumin Level 3.3 g/dL (3.5-5.2); Alkaline Phosphatase 111 U/L (35-105); Anion Gap 12.5 (5-19); Aspartate Amino Transferase 55 U/L (0-32); Blood Urea Nitrogen 11 mg/dL (8-23); Calcium 8.6 mg/dL (8.5-10.5); Carbon Dioxide 26 mmol/L (22-29); Chloride 108 mmol/L (98-107); Creatinine Clr Calc Pharmacy 100.1678; Globulin 2.9 g/dL (1.3-4.6); Glomerular Filtration Rate 85.4 mL/min (90-130); Glucose 115 mg/dL (65-115); Osmolality Calculated 292 mOsm/kg (285-295); Potassium 5.5 mmol/L (3.5-5.1); Sodium 141 mmol/L (136-145); Total Bilirubin 0.3 mg/dL (0.15-1.2); Total Protein 6.2 g/dL (6.6-8.7)
[2023-11-06 07:41] VITALS: BP 143/81; PULSE 62; RESP 18; TEMP 36.7; O2SAT 90
--- NOTE | 2023-11-06 08:06 | P.DS_ITS ---
Discharge Providers Date of Admission: 11/05/23 15:34 Date of Discharge: November 06, 2023 Attending Provider at Admission: Avery Peterson MD Attending Provider at Discharge: Avery Peterson MD Primary Care Provider: Leslye Estraad APN Diagnoses at Discharge Discharge Diagnosis (1) Chronic cholecystitis: Status: Acute Reason for Visit Reason for Visit: K80.50 Hospital Course Hospital Course 58-year-old female with symptomatic cholelithiasis who presented for laparoscopic cholecystectomy. Laparoscopic cholecystectomy was done and IntraOp findings show a very large stone measuring about 7 x 4 x 4 cm, extraction of the stone resulted in contamination of the wounds with bilious fluid as well as the need of a larger abdominal incision. Therefore we decided to keep the patient overnight for observation, 24 hours of IV antibiotics and pain control. This morning patient doing well, tolerating diet, no significant abdominal pain, vital signs have remained stable. Laboratory workup shows mild elevation of the white count which is expected after abdominal surgery, no significant changes in the LFTs. After discussion with the patient we have agreed to send her home, she will continue with a 7-day course of antibiotics and continue daily packing of her abdominal wound. Physical Exam GI: OTHER: Abdomen is soft, appropriately tender to palpation. Supraumbilical wound with packing in place, packing was replaced. Discharge Data Studies Completed and Pending Pending at discharge Category Date Time Status Pathology: Surgical [PTH] Routine Pth 11/05/23 11:33 Received Laboratory Results WBC 12.27 10^3/uL (3.29-11.43) H 11/06/23 04:46 RBC 4.70 10^6/uL (3.85-5.65) 11/06/23 04:46 Hgb 13.90 g/dL (11.27-16.99) 11/06/23 04:46 Hct 44.6 % (36-47) 11/06/23 04:46 MCV 94.9 fl (85-98) 11/06/23 04:46 MCH 29.6 pg (27-33) 11/06/23 04:46 MCHC 31.2 g/dL (30-55) 11/06/23 04:46 RDW 13.3 % (12.1-15.1) 11/06/23 04:46 Plt Count 226 10^3/cmm (157-399) 11/06/23 04:46 MPV 12.5 fL (7.4-10.4) H 11/06/23 04:46 Neut % (Auto) 81.4 % 11/06/23 04:46 Lymph % (Auto) 12.1 % 11/06/23 04:46 [place] % (Auto) 6.1 % 11/06/23 04:46 Eos % (Auto) 0.0 % 11/06/23 04:46 Baso % (Auto) 0.2 % 11/06/23 04:46 Neut # (Auto) 9.99 10^3/uL (1.8-7.7) H 11/06/23 04:46 Lymph # (Auto) 1.5 10^3/uL (0.8-4.8) 11/06/23 04:46 [place] # (Auto) 0.8 10^3/uL (0.2-0.9) 11/06/23 04:46 Eos # (Auto) 0.0 10^3/uL (0.0-0.8) 11/06/23 04:46 Baso # (Auto) 0.0 10^3/uL (0.0-0.1) 11/06/23 04:46 Nucleated RBC % (auto) 0 % 11/06/23 04:46 Nucleated RBCs # 0.0 /100WBC 11/06/23 04:46 Sodium 141 mmol/L (136-145) 11/06/23 04:46 Potassium 5.5 mmol/L (3.5-5.1) H 11/06/23 04:46 Chloride 108 mmol/L (98-107) H 11/06/23 04:46 Carbon Dioxide 26 mmol/L (22-29) 11/06/23 04:46 Anion Gap 12.5 (5-19) 11/06/23 04:46 BUN 11 mg/dL (8-23) 11/06/23 04:46 Creatinine 0.7 mg/dL (0.5-0.9) 11/06/23 04:46 GFR Calculation 85.4 mL/min (90-130) L 11/06/23 04:46 Glucose 115 mg/dL (65-115) 11/06/23 04:46 Calculated Osmolality 292 mOsm/kg (285-295) 11/06/23 04:46 Calcium 8.6 mg/dL (8.5-10.5) 11/06/23 04:46 Total Bilirubin 0.3 mg/dL (0.15-1.2) 11/06/23 04:46 AST 55 U/L (0-32) H 11/06/23 04:46 ALT 63 U/L (0-33) H 11/06/23 04:46 Alkaline Phosphatase 111 U/L (35-105) H 11/06/23 04:46 Total Protein 6.2 g/dL (6.6-8.7) L 11/06/23 04:46 Albumin 3.3 g/dL (3.5-5.2) L 11/06/23 04:46 Globulin 2.9 g/dL (1.3-4.6) 11/06/23 04:46 Vitals Last Vital Signs Temp 98.1 F 11/06/23 07:41 Pulse 62 11/06/23 07:41 Resp 18 11/06/23 07:41 BP 143/81 11/06/23 07:41 Pulse Ox 90 11/06/23 07:41 O2 Del Method Room Air 11/06/23 07:41 O2 Flow Rate 2 11/05/23 15:15 Discharge Plan Discharge Patient Disposition: Home Condition: Stable Prescriptions: New amoxicillin-pot clavulanate 875-125 mg tablet 1 tab PO Q12H Qty: 14 0RF oxycodone 5 mg tablet 5 mg PO Q8H PRN (Reason: pain, severe) Qty: 14 0RF acetaminophen 325 mg capsule 325 mg PO Q6H Qty: 20 0RF ondansetron 4 mg tablet,disintegrating 4 mg PO Q8H PRN (Reason: nausea and vomiting) 5 Days Qty: 14 0RF Continued albuterol sulfate 2.5 mg /3 mL (0.083 %) solution for nebulization 2.5 mg inhalation QID PRN (Reason: Shortness Of Breath Or Wheezing) triamterene-hydrochlorothiazid [Maxzide-25mg] 37.5-25 mg Tablet 1 tab PO DAILY PRN (Reason: Edema) montelukast 10 mg tablet 10 mg PO DAILY albuterol sulfate 90 mcg/actuation HFA aerosol inhaler 2 puff INHALATION QID PRN (Reason: Shortness Of Breath Or Wheezing) Probiotic 10 billion cell Capsule 10,000 mmu cells PO DAILY Discharge Orders: Discharge Order (Routine); Ordered 11/06/23 Ordered By: Avery Peterson Referrals: Avery Peterson MD [Physician] - Discharge Diet: Advance as tolerated and Low Fat Discharge Activity: Limit activity as instructed Patient Instructions: Opioid Safety, Post Anesthesia Care Activity Restrictions/Additional Instructions: Do not lift anything heavier than 10 pounds for the next 6 weeks, do not strain your abdominal wall, you can walk is much as possible that will help improve your recovery rate. Keep packing your wound once a day with quarter inch packing as instructed. Please return to the hospital if you have fever chills a nd severe abdominal pain, purulent discharge from your wounds, yellowing of your skin. Discharge Attestations Time Spent in Discharge Care*: less than 30 min Quality Metrics Clinical Quality Measures [ No reported AMI, CVA or VTE this stay] Coding Level of Care Code Acute Code for Chg Fwd Diagnoses Chronic cholecystitis K81.1
[2023-11-06 08:31] VITALS: PULSE 68; RESP 16; O2SAT 92
--- NOTE | 2023-11-06 09:20 | PC.CHAP ---
Pastoral Care Encounter/Spiritual Assessment Type of Contact [] Declined regional account executive visit [] Patient/Family/Request visit [] Outpatient visit [] Follow-up visit [] Physician referral [] Code/Alert [x] Routine visit [] Staff referral [] Actively dying [] Patient sleeping [] Family support [] [] Out of room [] Palliative care [] [] Receiving care in room [] Pre-surgical visit [] Trauma [] Long length of stay [] ICU visit [] Other: Relational/Emotional Strength [x] Patient feels connected with others/family/visitors/staff [] Distress [] Loneliness/isolation [] Abandonment Spirituality of Patient [x] Person of Connie [] Attends Religious of their Connie [x] Believes in Prayer [] Reads Bible or Congregational materials [] There are Spiritual issues to be addressed 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 Interventions [x] Prayer [x] Active listening [] Non-anxious presence [x] Spiritual/emotional support [] Crisis/trauma care [] Spiritual counseling [] Bereavement support [] Provided bereavement packet [] Provided Bible/devotional materials [] Provided toy/stuffed animal, coloring book to patient or family member [] Provided Communion [] Anointing/[place] [] Salvation [x] Completed spiritual assessment [] Other: Impact on Illness or Injury [] Angry [] Fearful [] Anxious [] Often cries [] Exhaustion [] Unable to work [] Unable to attend jewish [] Unable to walk/stand [] Unable to read [] Unable to drive [] Unable to eat/drink [] Unable to sleep [] Unable to be with family [] Patient intubated [] Other: Summary Time spent with patient 5 min
[2023-11-06 10:29] VITALS: PULSE 68; RESP 16; O2SAT 92
== END 2023-11-06 09:58 | disposition home or self-care (01) ==
LOC: MEDSURG 15:34
PROVIDERS: Admitting Provider Surgery; PCP Nurse Practitioner Family; Visit Provider Surgery
PROC: 0FT44ZZ Resection of Gallbladder, Percutaneous Endoscopic Approach (ICD-10-PCS; CPT 47562; principal; 2023-11-05 10:00)
DX: K80.10 Calculus of gallbladder with chronic cholecystitis without obstruction (principal); K42.9 Umbilical hernia without obstruction or gangrene; Z87.891 Personal history of nicotine dependence; J45.909 Unspecified asthma, uncomplicated
CPT/HCPCS: 47562; 36415; 80053; 85025; 88304; G0378; J0690; J1100; J1170; J2270; J2405; J2543; J2704; J2710; J3010; J3490; J7030

== ENCOUNTER 2024-08-27 08:54 | Emergency (ER) | payer BC, SELFPAY ==
[2024-08-27 09:16] VITALS: BP 190/83; PULSE 63; TEMP 36.8; O2SAT 95; BMI 37.8
[2024-08-27 10:18] LABS: Basophils % 0.4 %; Eosinophils # 0.2 10^3/uL (0.0-0.8); Eosinophils % 2.9 %; Hematocrit 49.6 % (36-47); Lymphocytes # 1.5 10^3/uL (0.8-4.8); Mean Corpuscular HGB Conc 31.3 g/dL (30-55); Mean Corpuscular Hemoglobin 29.1 pg (27-33); Mean Corpuscular Volume 93.1 fl (85-98); Mean Platelet Volume 12.5 fL (7.4-10.4); Monocytes # 0.6 10^3/uL (0.2-0.9); Monocytes % 7.6 %; Neutrophils # 5.87 10^3/uL (1.8-7.7); Neutrophils % 70.7 %; Nucleated Red Blood Cells % 0 %; Platelet Count 204 10^3/cmm (157-399); Red Blood Count 5.33 10^6/uL (3.85-5.65); Red Cell Distribution Width 13.1 % (12.1-15.1); White Blood Count 8.29 10^3/uL (3.29-11.43)
--- NOTE | 2024-08-27 10:28 | ED_ITS ---
HPI - Dental/Oral 2 General: Chief complaint: Dental/Oral Stated complaint: R side face swollen Time Seen by Provider: 08/27/24 09:21 Source: patient Mode of arrival: ambulatory Limitations: no limitations History of Present Illness: 59-year-old female states she has had ri ght upper dental pain over the last 2 to 3 days. She states she is also had some swelling to the right upper side of her face she denies any fevers denies any difficulty swallowing denies any worse improved factors Associated symptoms: Denies fever(s) Related Data Home Medications Medication Instructions Recorded Confirmed Lactobacillus acidophilus 10 10,000 mmu cells PO DAILY 09/29/23 12/19/23 billion cell capsule (Probiotic) albuterol sulfate 2.5 mg/3 mL 2.5 mg inhalation QID PRN 09/29/23 12/19/23 (0.083 %) solution for nebulization Shortness Of Breath Or Wheezing albuterol sulfate 90 mcg/actuation 2 puff inhalation QID PRN 09/29/23 12/19/23 aerosol inhaler Shortness Of Breath Or Wheezing montelukast 10 mg tablet 10 mg PO DAILY 09/29/23 12/19/23 triamterene 37.5 1 tab PO DAILY PRN Edema 09/29/23 12/19/23 mg-hydrochlorothiazide 25 mg tablet (Maxzide-25mg) Previous Rx's Medication Instructions Recorded acetaminophen 325 mg capsule 325 mg PO Q6H #20 caps 11/06/23 amoxicillin 875 mg-potassium 1 tab PO Q12H #14 tabs 11/06/23 clavulanate 125 mg tablet oxycodone 5 mg tablet 5 mg PO Q8H PRN pain, severe #14 11/06/23 tabs cephalexin 500 mg capsule 500 mg PO TID 7 days #21 caps 08/27/24 Allergies Allergy/AdvReac Type Severity Reaction Status Date / Time No Known Allergies Allergy Verified 08/27/24 09:22 Review of Systems 2 Const: Denies: fever(s), chills, body aches or change in appetite ENMT: Denies: throat pain or dental pain Card: Denies: chest pain Resp: Denies: dyspnea GI: Denies: abdominal pain, nausea, vomiting or diarrhea Musc: Denies: neck pain or back pain Skin/Breast: Denies: rash Neuro: Denies: headache(s) PFSH ED 2 PFSH: Surgical History Hx laparoscopic cholecystectomy Family History Denies family history of Anesthesia complication Social History Smoking and tobacco/nicotine status: former use of tobacco/nicotine Alcohol intake: never Physical Exam 2 Const: COMMON NORMALS: no acute distress, patient oriented x3 and healthy appearing HENMT: COMMON NORMALS: normocephalic and atraumatic HEAD & SCALP: n ormocephalic and atraumatic OTHER: Some swelling to right upper face tenderness to right upper molar no obvious abscess no trismus Eye: COMMON NORMALS: conjunctivae normal CONJUNCTIVA: Yes conjunctivae normal Neck/C-Spine: COMMON NORMALS: full ROM and supple Chest: COMMONS NORMALS: normal inspection of the chest Resp: COMMON NORMALS: normal respiratory effort Cardio: COMMON NORMALS: regular rate RATE: regular rate Extremity: COMMON NORMALS: normal to inspection and full ROM Neuro: COMMON NORMALS: patient oriented x3, moves all extremities and no focal motor deficits Psych: COMMON NORMALS: mental status grossly normal, Normal thought process present and cooperative THOUGHT PROCESS: Normal thought process present Skin: COMMON NORMALS: no rashes or lesions noted and no wounds GENERAL SKIN EXAM: no rashes or lesions noted Course 2 Vital Signs: Vital signs: Vital Signs Temperature 98.3 F 08/27/24 09:16 Pulse Rate 63 08/27/24 09:16 Blood Pressure 190/83 08/27/24 09:16 Pulse Oximetry 95 08/27/24 09:16 Oxygen Delivery Me thod Room Air 08/27/24 09:16 MDM - Dental/Oral Medical Decision Making Patient presents here with dental pain does have some face swelling as well no drainable abscess at this time patient is stable for discharge she is to follow- up with dentist she is to return if worsening she understands agrees to plan. Lab Data I reviewed the patient's lab results. 08/27/24 09:55 08/27/24 09:55 Laboratory Results WBC 8.29 10^3/uL (3.29-11.43) 08/27/24 09:55 RBC 5.33 10^6/uL (3.85-5.65) 08/27/24 09:55 Hgb 15.50 g/dL (11.27-16.99) 08/27/24 09:55 Hct 49.6 % (36-47) H 08/27/24 09:55 MCV 93.1 fl (85-98) 08/27/24 09:55 MCH 29.1 pg (27-33) 08/27/24 09:55 MCHC 31.3 g/dL (30-55) 08/27/24 09:55 RDW 13.1 % (12.1-15.1) 08/27/24 09:55 Plt Count 204 10^3/cmm (157-399) 08/27/24 09:55 MPV 12.5 fL (7.4-10.4) H 08/27/24 09:55 Neut % (Auto) 70.7 % 08/27/24 09:55 Lymph % (Auto) 18.0 % 08/27/24 09:55 [place] % (Auto) 7.6 % 08/27/24 09:55 Eos % (Auto) 2.9 % 08/27/24 09:55 Baso % (Auto) 0.4 % 08/27/24 09:55 Neut # (Auto) 5.87 10^3/uL (1.8-7.7) 08/27/24 09:55 Lymph # (Auto) 1.5 10^3/uL (0.8-4.8) 08/27/24 09:55 [place] # (Auto) 0.6 10^3/uL (0.2-0.9) 08/27/24 09:55 Eos # (Auto) 0.2 10^3/uL (0.0-0.8) 08/27/24 09:55 Baso # (Auto) 0.0 10^3/uL (0.0-0.1) 08/27/24 09:55 Nucleated RBC % (auto) 0 % 08/27/24 09:55 Nucleated RBCs # 0.0 /100WBC 08/27/24 09:55 No radiology studies performed this visit Discharge Plan Discharge Patient Disposition: Home Clinical Impression: Toothache Condition: Stable Prescriptions: New cephalexin 500 mg capsule 500 mg PO TID 7 Days Qty: 21 0RF No Action albuterol sulfate 2.5 mg /3 mL (0.083 %) solution for nebulization 2.5 mg inhalation QID PRN (Reason: Shortness Of Breath Or Wheezing) triamterene-hydrochlorothiazid [Maxzide-25mg] 37.5-25 mg Tablet 1 tab PO DAILY PRN (Reason: Edema) montelukast 10 mg tablet 10 mg PO DAILY albuterol sulfate 90 mcg/actuation HFA aerosol inhaler 2 puff INHALATION QID PRN (Reason: Shortness Of Breath Or Wheezing) Probiotic 10 billion cell Capsule 10,000 mmu cells PO DAILY amoxicillin-pot clavulanate 875-125 mg tablet 1 tab PO Q12H Qty: 14 0RF oxycodone 5 mg tablet 5 mg PO Q8H PRN (Reason: pain, severe) Qty: 14 0RF acetaminophen 325 mg capsule 325 mg PO Q6H Qty: 20 0RF Discharge Orders: Discharge ED (Routine); Ordered 08/27/24 Ordered By: Cristela Vidal Referrals: Leslye Estrada APN [Primary Care Provider] - Discharge Diet: Advance as tolerated Discharge Activity: Resume usual activity Patient Instructions: Toothache (ED) Coding Level of Care Code ED Lunchroom Worker for Shira Carrasquillo
[2024-08-27 10:29] LABS: Alanine Aminotransferase 17 U/L (0-33); Albumin Level 3.6 g/dL (3.5-5.2); Alkaline Phosphatase 132 U/L (35-105); Aspartate Amino Transferase 16 U/L (0-32); Blood Urea Nitrogen 9 mg/dL (8-23); Calcium 9.3 mg/dL (8.5-10.5); Carbon Dioxide 27 mmol/L (22-29); Chloride 103 mmol/L (98-107); Creatinine Clr Calc Pharmacy 113.0607; Globulin 3.3 g/dL (1.3-4.6); Glomerular Filtration Rate 101.6 mL/min (90-130); Glucose 115 mg/dL (65-115); Osmolality Calculated 288 mOsm/kg (285-295); Sodium 139 mmol/L (136-145); Total Bilirubin 0.4 mg/dL (0.15-1.2); Total Protein 6.9 g/dL (6.6-8.7)
[2024-08-27] MEDS: cefTRIAXone 1,000 MG in water for injection-sterile 2.1 ML 2 MG IM (10:30)
[2024-08-27 10:35] VITALS: BP 182/79; PULSE 62; O2SAT 99
== END 2024-08-27 10:37 | disposition home or self-care (01) ==
PROVIDERS: Family Medicine; Emergency Provider Emergency Medicine; PCP Nurse Practitioner Family
DX: K08.89 Other specified disorders of teeth and supporting structures (principal); Z87.891 Personal history of nicotine dependence
CPT/HCPCS: 80053; 85025; 96372; 99284; J0696